=== PATIENT | male | born 1965 | race Caucasian/White ===

== ENCOUNTER 2018-04-01 11:28 | Emergency (ER) | payer MEDICAID, OTHER ==
[2018-04-01] MEDS: IBUPROFEN 600 MG TAB PO (12:17)
== END 2018-04-01 13:15 | disposition home or self-care (01) ==
LOC: FTE 11:28
DX: M25.462 Effusion, left knee (principal); F17.210 Nicotine dependence, cigarettes, uncomplicated
CPT/HCPCS: 29505; 73562; 99283-25

== ENCOUNTER 2018-07-10 08:48 | Day surgery (SDC) | payer BC, MEDICAID ==
[~2018-07-10 08:48] MED LIST: CEFAZOLIN 1 GM INJ; CLINDAMYCIN 900 MG/50 ML D5W IVPB IVPB; NEOSTIGMINE 3 MG/3 ML SYRINGE; ONDANSETRON 4 MG INJ; SUCCINYLCHOLINE CHLORIDE 100 MG/5 ML SYG IV
[2018-07-10] MEDS ORDERED: MIDAZOLAM 1 MG/ML 2 ML INJ (11:21)
[2018-07-10] MEDS ORDERED: ROCURONIUM 50 MG INJ (11:21)
[2018-07-10] MEDS ORDERED: PROPOFOL 20 ML (11:21)
[2018-07-10] MEDS ORDERED: LIDOCAINE 2% (SDV) 5 ML INJ (11:21)
[2018-07-10] MEDS ORDERED: GLYCOPYRROLATE 0.4 MG INJ (11:21)
[2018-07-10] MEDS ORDERED: FENTAnyl 50 MCG/ML VIAL (11:22)
[2018-07-10] MEDS ORDERED: DEXAMETHASONE 4 MG/ML 1 ML INJ (11:37)
[2018-07-10] MEDS ORDERED: LABETALOL HCL 20MG INJ (11:43)
[2018-07-10] MEDS ORDERED: hydrALAzine 20 MG INJ (11:53)
[2018-07-10] MEDS ORDERED: SUGAMMADEX SODIUM 200 MG/2 ML VIAL IV (12:05)
[2018-07-10] MEDS: ROPIVACAINE 0.5 % 30 ML VIAL (12:07)
[2018-07-10] MEDS: SOD CHLORIDE 0.9% 1,000 ML IV (13:12)
[2018-07-10] MEDS ORDERED: HYDROmorphONE 1 MG/5 ML IV SYRINGE IV ×3 (13:19→13:30)
[2018-07-10] MEDS: HYDROmorphONE 1 MG/5 ML IV SYRINGE IV ×4 (13:27→14:28)
[2018-07-10] MEDS ORDERED: ONDANSETRON 4 MG INJ IV (13:30)
[2018-07-10] MEDS ORDERED: ALBUTEROL 0.083% (NEB) 2.5 MG/3 ML AMP HHN (13:30)
[2018-07-10] MEDS ORDERED: MIDAZOLAM 1 MG/ML 2 ML INJ IV (13:30)
[2018-07-10] MEDS ORDERED: LABETALOL HCL 20MG INJ IV (13:30)
[2018-07-10] MEDS ORDERED: OXYCODONE/ACETAMINOPHEN (5/325) TAB PO (13:30)
[2018-07-10] MEDS ORDERED: MEPERIDINE 25 MG INJ IV (13:30)
[2018-07-10] MEDS ORDERED: DIPHENHYDRAMINE 50 MG INJ IV (13:30)
[2018-07-10] MEDS ORDERED: morphine 2 MG INJ IV (13:30)
[2018-07-10] MEDS ORDERED: METOCLOPRAMIDE 10 MG INJ IV (13:30)
[2018-07-10] MEDS ORDERED: IPRATROPIUM (NEB) 0.5 MG/2.5 ML AMP HHN (13:30)
[2018-07-10] MEDS ORDERED: EPHEDrine SULFATE 50 MG/5 ML SYG IV (13:30)
[2018-07-10] MEDS ORDERED: hydrALAzine 20 MG INJ IV (13:30)
[2018-07-10] MEDS ORDERED: FENTAnyl 50 MCG/ML VIAL IV ×2 (13:30)
[2018-07-10] MEDS: FENTAnyl 50 MCG/ML VIAL IV ×2 (13:33→14:28)
[2018-07-10] MEDS: ONDANSETRON 4 MG INJ IV (13:41)
[2018-07-10] MEDS: OXYCODONE/ACETAMINOPHEN (5/325) TAB PO (14:11)
== END 2018-07-10 15:18 | disposition home or self-care (01) ==
LOC: SDS 08:48
DX: M23.252 Derangement of posterior horn of lateral meniscus due to old tear or injury, left knee (principal); M23.201 Derangement of unspecified lateral meniscus due to old tear or injury, left knee; M94.262 Chondromalacia, left knee
CPT/HCPCS: 29880; 88304